=== PATIENT | female | born 1995 | race Caucasian/White ===

== ENCOUNTER 2018-01-24 13:31 | Emergency (ER) | payer BC, SELFPAY ==
[2018-01-24 13:33] VITALS: BP 152/103; PULSE 91; RESP 17; TEMP 36.4; O2SAT 100; BMI 19.7
--- NOTE | 2018-01-24 14:04 | EKG12_ITS ---
Test Reason : GENERAL ILLNESS Blood Pressure : / mmHG Vent. Rate : 073 BPM Atrial Rate : 073 BPM P-R Int : 134 ms QRS Dur : 084 ms QT Int : 394 ms P-R-T Axes : 060 084 040 degrees QTc Int : 434 ms Normal sinus rhythm Normal ECG Confirmed by TERI BUCHANAN MD ([id number]), photography editor LEONOR CHOU ([id number]) on 01/26/2018 3:06:05 PM Referred By: LAURA Confirmed By:TERI BUCHANAN MD
[2018-01-24] MEDS: 0.9% Normal Saline 1,000 ML 1000 ML IV (14:29)
--- NOTE | 2018-01-24 14:30 | RAD_ITS ---
STUDY: X-RAY CHEST REASON FOR EXAM: Female, 22 years old. Cough general illness TECHNIQUE: PA and lateral views of the chest. COMPARISON: None. FINDINGS: The lungs are clear and expanded. There is no demonstrated pleural abnormality. Normal size heart. Normal mediastinum and andrew. Normal visualized pulmonary arteries. Normal visualized aortic arch and descending thoracic aorta. Normal visualized thoracic spine. Normal visualized ribs, clavicles, and shoulders. There is no demonstrated abnormality of the visualized soft tissue structures of the upper abdomen. RAD/Chest PA and Lateral IMPRESSION: Normal x-ray examination of the chest. Electronically Signed: Porsche Frazier MD at 14:49 EST Tel , Service support ,
[2018-01-24 14:42] LABS: Mucous, Urine 0 SEEN /hpf (<or=2+); Red Blood Cells-Urine 0 SEEN /hpf (0-5)
--- NOTE | 2018-01-24 14:43 | ED.VISSUMM ---
- ER Visit Summary Date of Service: 01/24/18 Chief Complaint: [] Couple complaints cough fatigue left shoulder pain green stool for over a week History of Present Illness: The patient is a 22 F [] has those complaints for over a week to indicate began with a cough some vague left shoulder pain and she did have generalized fatigue then she began having green stool but no diarrhea she is able to eat and drink no fever the cough is dry nonproductive, she has had no exposure to ill food or ill individuals, she has no history of [place] PE DVT denies being no UTI symptoms her GI symptoms are resolved she never had vomiting or diarrhea and now her stool is back to being brown, her chief complaint is really generalized fatigue she denies Physical Examination: [] Distress she is a healthy-appearing female her vital signs are normal her pulse ox is normal she is afebrile clinically she looks well HEENT exam is unremarkable neck is supple lungs are clear oral cavity conjunctiva normal the lungs are clear heart tones are normal abdomen soft nontender the backs unremarkable upper lower extremities unremarkable her motor and sensory exam are unremarkable she is able to walk around the emergency department to the bathroom without difficulty Test Results: [] Emergency Department Course and Treatment: [] Her complaints a comprehensive evaluations pursued Since labs EKG chest x-ray unremarkable her d-dimer did return positive at 0.65 she is on control pills she has no risk for PE otherwise, she has no immobility leg swelling history of DVT or PE CTA is done of chest which is negative for PE there is some suggestion of mild esophagitis see that report In all the above the patient her mother at this time she will be started on Prilosec bland diet and follow with her family doctor for further management I explained her the exact etiology of all of her symptoms are unclear and she needs more definitive outpatient management she is feeling better she understands and she will follow-up Treatment Plan: [] Disposition: [] Stable home Impression: [] Nonspecific complaints of fatigue cough left shoulder pain, CT suggestive of esophagitis see that report This note was generated with [employer] dictation software. It may contain incorrect words, spelling, and punctuation that were not noted in review of the chart prior to signing ED Disposition - Plan for ED Patient: Chief Complaint: General Illness Referrals: Lois Perez MD [Primary Care Provider] -
[2018-01-24 14:50] LABS: Absolute Lymphocyte Count 3.45 X10^3/ul (0.83-4.51); Absolute Neutrophil Count 6.6 X10^3/uL (2.0-7.7); Basophil# 0.03 X10^3/uL; Basophil% 0.3 % (0-1); Eosinophil# 0.15 X10^3/uL; Eosinophils% 1.3 % (0-5); Hematocrit 44.1 % (37-47); Hemoglobin 14.5 g/dl (12.0-15.0); Lymphocyte # 3.45 X10^3/ul (4.0); Mean Corp Hgb Conc 32.9 g/gl (32-36); Mean Corpuscular Hgb 29.8 pg (27.0-32.0); Mean Corpuscular Volume 90.6 fL (81-99); Mean Platelet Vol. 9.9 fl (6.2-12.0); Monocyte# 0.89 X10^3/uL; Neutrophil # 6.59 X10^3/uL (2.7-7.7); Neutrophil % 59.2 % (47-70); POSITIVE COUNT NO; POSITIVE DIFFERENTIAL NO; POSITIVE MORPHOLOGY NO; Platelet Count 312 K/mm3 (150-450); RBC Distribution Width CV 12.5 % (11.6-14.6); RBC Distribution Width SD 40.9 fl (35.1-43.9); Red Blood Count 4.87 M/mm3 (4.2-5.4); White Blood Count 11.1 K/mm3 (4.4-11.0)
[2018-01-24 14:54] LABS: Color, Urine Yellow (Yellow); Glucose, Dipstick Normal (Normal); Ketone-Dipstick Negative (Negative); Leukocyte Esterase-Dipstick 25 /ul (Negative); Nitrite-Dipstick Negative (Negative); Occult Blood-Urine 10 /ul (Negative); Protein-Dipstick Negative (Negative); Specific Gravity, Urine 1.015 (1.002-1.030); Urine Bilirubin Dipstick Negative (Negative); Urine Clarity Clear (Clear); Urine Urobilinogen 1 mg/dl (Normal); Urine pH 6.5 (5.0 - 8.0)
[2018-01-24 15:09] LABS: AST(SGOT) 12 U/L (15-37); Alanine Aminotransfer ALT/SGPT 16 U/L (13-56); Alkaline Phosphatase 48 U/L (45-117); Anion Gap 7 (5-15); BUN 12 mg/dL (7-18); Bilirubin, Direct 0.15 mg/dL (0.00-0.30); Calcium,Total 8.6 mg/dL (8.5-10.1); Chloride 106 mmol/L (98-107); Creatinine, Serum 0.75 mg/dL (0.55-1.02); EST Glomerular Filtration Rate 104 mL/min (>60); Est Glom Filt Rate - Afr Amer 126 mL/min (>60); Estimated Creatinine Clearance 97.71 ml/min; Globulin 4.5 g/dL (2.2-4.2); Glucose 79 mg/dL (74-106); Lipase 154 U/L (73-393); Potassium 3.4 mmol/L (3.5-5.1); Protein, Total 8.5 g/dL (6.4-8.2); Sodium Level 138 mmol/L (136-145)
[2018-01-24 15:10] LABS: Bacteria 2+ /hpf (None Seen); Squamous Epithelial Cells - UA 5-10 SEEN /hpf (5-10); White Blood Cells 0-5 SEEN /hpf (0-5)
[2018-01-24 15:22] LABS: D-Dimer Quantitative (DVT/PE) 0.65 FEU/ug/m (0.27-0.49)
--- NOTE | 2018-01-24 15:26 | ED.RN ---
notified MD of d-dimer 0.65
--- NOTE | 2018-01-24 15:27 | CT_ITS ---
STUDY: CTA CHEST REASON FOR EXAM: Female, 22 years old. Chest pain for one week, shaky. RADIATION DOSAGE (If Supplied By Facility): CTDIvol = ( 7.66 ) mGy, DLP = ( 166.31 ) mGycm TECHNIQUE: The examination was performed with the intravenous administration of 75CC ml of Isovue 370 contrast material. Post-processing of the angiographic images was performed, with multiplanar reformation and 3D reconstruction. Individualized dose optimization techniques were used for this CT. COMPARISON: Chest x-ray January 24 2018 FINDINGS: Normal enhancement of the main pulmonary artery and right and left pulmonary arteries. Normal enhancement of the bilateral peripheral pulmonary arteries. There is no demonstrated pulmonary embolism. Normal thoracic aorta and visualized great vessels. There is no demonstrated aortic dissection. Normal heart and pericardium. Normal mediastinum. Normal hilar regions. Normal visualized trachea and bronchi. The lungs are well expanded. Normal pulmonary parenchyma. Normal pleura. Normal chest wall structures. Normal osseous structures. There is a suggestion of mild thickening of the distal esophagus. CT/CTA Chest W/WO Contrast IMPRESSION: Normal CTA chest examination, without a demonstrated pulmonary embolism or arterial dissection. Could consider mild esophagitis. Electronically Signed: Porsche Frazier MD at 16:16 EST Tel , Service support ,
[2018-01-24 15:39] LABS: Pregnancy, Serum, hCG Quali. NEGATIVE Negative (0-9 Nonpreg)
[2018-01-24] MEDS: 0.9% Normal Saline 1,000 ML 999 ML IV (16:11)
[2018-01-24 16:12] VITALS: BP 135/81; PULSE 87; RESP 16; O2SAT 99
--- NOTE | 2018-01-24 16:20 | ED.DEP ---
ED Disposition - Plan for ED Patient: Chief Complaint: General Illness Instructions: ED Weakness UKO, Esophagitis Prescriptions: Omeprazole [Prilosec] 20 mg PO DAILY #30 cap Referrals: Lois Perez MD [Primary Care Provider] -
[2018-01-24 16:34] VITALS: BP 125/77; PULSE 67; RESP 15; O2SAT 98
== END 2018-01-24 16:36 | disposition home or self-care (01) ==
PROVIDERS: Emergency Provider Emergency Medicine; Family Provider Pediatrics; PCP Pediatrics
DX: R05 Cough (principal); R53.83 Other fatigue; M25.512 Pain in left shoulder
CPT/HCPCS: 71046; 71275; 80048; 80076; 81001; 83690; 84484; 84703; 85025; 85379; 93005; 96360; 96361; 99283; J7030; Q9967

== ENCOUNTER 2020-11-21 12:18 | Emergency (ER) | payer BC, SELFPAY ==
[2020-11-21 12:19] VITALS: BP 119/77; PULSE 101; RESP 18; TEMP 36.3; O2SAT 100; BMI 20.5
--- NOTE | 2020-11-21 12:33 | ED.DCSUM_ITS ---
History of Present Illness Chief Complaint: Abd Pain Informant: Patient Narrative: 25-year-old female presenting with abdominal pain. She states it started about 3 AM above her umbilicus. She states that currently it is now hurting in the right lower quadrant. Patient has not had a fever or chills. She feels nauseous without vomiting. Patient states he has no surgical history. She denies any medical problems. No vaginal complaints or urinary complaints. She not had diarrhea or constipation. Past Medical History - Allergies and Home Meds Allergies/Adverse Reactions: Allergies No Known Allergies Allergy (Verified 01/24/18 13:32) Primary Care Physician: Lois Perez MD [Primary Care Provider] - Prior records reviewed: Yes Past Medical History: None Surgical History: no surgical history Smoking Status: Never smoker Alcohol: None Drugs: None Review of Systems General: Denies: Chills, Fever, Malaise Eyes: Denies: Visual changes - bilaterally, Diplopia ENT: Denies: Rhinorrhea, Sore throat Cardiovascular: Denies: Chest pain, Palpitations Respiratory: Denies: Dyspnea, Cough, Dyspnea on exertion Gastrointestinal: Reports: Abdominal pain, Nausea. Denies: Vomiting, Diarrhea, Constipation Genitourinary: Denies: Dysuria, Hematuria, Frequency Musculoskeletal: Denies: Back pain, Extremity Pain Skin: Denies: Rash, Wounds Neurological: Denies: Headache, Weakness, Numbness Psych: Denies: Depression, Anxiety Physical Exam Vital Signs/Narrative: Vital Signs Temp Pulse Resp BP Pulse Ox 11/21/20 12:19 97.3 F L 101 H 18 119/77 100 Inital Vital Signs reviewed: Yes General: Well nourished, Well developed, No Acute Distress Head: Normocephalic, Atraumatic Eyes: Perrl, EOMI ENT: Moist mucous membranes, No rhinorrhea Cardiovascular: Regular rate, Regular rhythm Respiratory: No distress, CTA bilaterally Abdomen: Soft, Nondistended, Tender - Tenderness palpation right lower quadrant. Extremities: Nontender, No edema Skin: Normal color, No rash Neurological: Alert, Oriented x3 Psychological: Normal affect, Normal Mood Diagnostic/Tx/Re-eval Clinical Impression(s) from Imaging Studies Abdomen/Pelvis CT 11/21/20 12:38 IMPRESSION: Prominence of the portal triads within the liver. Periportal edematous changes to be ruled out. 1.87 x 2.6 cm cyst in the left ovary. Electronically Signed: Don Blevins, at 15:09 EST , Service support , Laboratory Data 11/21/20 11/21/20 11/21/20 12:55 12:55 13:53 WBC 5.4 RBC 4.86 Hgb 14.2 Hct 45.1 MCV 92.8 MCH 29.2 MCHC 31.5 L RDW Std Deviation 41.4 RDW Coeff of Lise 12.0 Plt Count 319 MPV 9.0 Immature Gran % (Auto) 0.200 Neut % (Auto) 57.5 Lymph % (Auto) 30.4 [place] % (Auto) 8.8 Eos % (Auto) 2.2 Baso % (Auto) 0.9 Absolute Neuts (auto) 3.1 Absolute Lymphs (auto) 1.65 Nucleated RBC % 0 Sodium 141 Potassium 4.1 Chloride 108 H Carbon Dioxide 27.0 Anion Gap 6 BUN 7 Creatinine 0.82 Estim Creat Clear Calc 90.90 Est GFR (MDRD) Af Amer 109 Est GFR (MDRD) Non-Af 90 BUN/Creatinine Ratio 8.5 L Glucose 85 Calcium 8.9 Urine Color Straw Urine Clarity Clear Urine pH 7.0 Ur Specific [place] 1.005 Urine Protein Negative Urine Glucose (UA) Normal Urine Ketones Negative Urine Occult Blood Negative Urine Nitrite Negative Urine Bilirubin Negative Urine Urobilinogen Normal Ur Leukocyte Esterase Negative Urine RBC 0 SEEN Urine WBC 0 SEEN Ur Squamous Epith Cells 0-5 SEEN Urine Bacteria 0 SEEN Urine Mucus 0 SEEN Urine Test Negative - Medical Decision Making 5-year-old female with no significant past medical history presents with right lower quadrant pain. Patient was given morphine and Zofran and had CT of the abdomen pelvis with p.o. and IV contrast performed which showed a ovarian cyst however there was nothing on the right. The appendix is well visualized and shows no signs of appendicitis. Lab work is all within normal limits. It is unclear what her pain is on the right side. She was offered transvaginal ultrasound, but opted to just stay home for a couple of days until she feels better. She was counseled that if she has worsening or continued pain in the right lower quadrant that she would need to be reevaluated in the next 24 hours for repeat exam and possibly repeat CT of the abdomen pelvis. She acknowledged understanding. Patient stable for discharge. Impression: 1. Left ovarian cyst 2. Right lower quadrant abdominal pain ED Disposition - Plan for ED Patient: Disposition: Home or Assisted Living Instructions: ED Ovarian Cyst Prescriptions: Oxycodone [Oxyir] 5 mg PO Q6H PRN PRN 3 Days #12 tab PRN Reason: pain Prescription Printed Ondansetron [Zofran Odt] 4 mg PO Q8H PRN PRN #20 tab PRN Reason: Nausea Prescription Printed Referrals: Lois Perez MD [Primary Care Provider] -
--- NOTE | 2020-11-21 12:38 | CT_ITS ---
STUDY: CT ABDOMEN AND PELVIS WITH CONTRAST REASON FOR EXAM: Female, 25 years old. RLQ PAIN TODAY, NAUSEA RADIATION DOSAGE (If Supplied By Facility): CTDIvol = ( 9.23 ) mGy, DLP = ( 427.30 ) mGycm TECHNIQUE: Transaxial images were obtained from the dome of the diaphragm to the symphysis pubis with oral contrast. Oral and amp;amp; IV Gastrografin and amp;amp; 100mL Isovue-300 was administered. Sagittal and coronal images were reconstructed. Individualized dose optimization techniques were used for this CT. COMPARISON: None. FINDINGS: The visualized lung bases are unremarkable. The visualized portions of the heart are within normal limits. Prominence of the portal triads within the liver. This is suggestive of periportal edema. Normal gallbladder and extrahepatic biliary system. Normal spleen. Normal pancreas. Normal bilateral adrenal glands. Normal right kidney. Normal left kidney. Normal visualized stomach. Normal small intestine. Normal colon. The appendix is visualized and appears normal. Normal abdominal aorta. There is venous distention of the inferior vena cava (IVC). Normal retroperitoneum. Normal urinary bladder. I suspect a 1.8 cm x 2.6 cm cyst in the left ovary. There is a small umbilical hernia containing fat. Normal osseous structures. CT/Abdomen/Pelvis WITH Contrast IMPRESSION: Prominence of the portal triads within the liver. Periportal edematous changes to be ruled out. 1.87 x 2.6 cm cyst in the left ovary. Electronically Signed: Don Blevins, at 15:09 EST , Service support ,
[2020-11-21 13:04] LABS: Absolute Lymphocyte Count 1.65 X10^3/uL (0.83-4.51); Absolute Neutrophil Count 3.1 X10^3/uL (2.0-7.7); Basophil# 0.05 X10^3/uL; Basophil% 0.9 % (0-1); Eosinophil# 0.12 X10^3/uL; Eosinophils% 2.2 % (0-5); Hematocrit 45.1 % (37-47); Hemoglobin 14.2 g/dL (12.0-15.0); Lymphocyte # 1.65 X10^3/ul (4.0); Lymphocyte % 30.4 % (19-41); Mean Corp Hgb Conc 31.5 g/dL (32-36); Mean Corpuscular Hgb 29.2 pg (27.0-32.0); Mean Corpuscular Volume 92.8 fL (81-99); Monocyte# 0.48 X10^3/uL; Monocyte% 8.8 % (0-10); NRBC Flagged by Analyzer 0 % (0-5); Neutrophil # 3.12 X10^3/uL (2.7-7.7); Neutrophil % 57.5 % (47-70); Platelet Count 319 K/mm3 (150-450); RBC Distribution Width SD 41.4 fl (35.1-43.9); Red Blood Count 4.86 M/mm3 (4.2-5.4); White Blood Count 5.4 K/mm3 (4.4-11.0)
[2020-11-21 13:17] LABS: Anion Gap 6 (5-15); BUN 7 mg/dL (7-18); BUN/Creat Ratio 8.5 RATIO (10-20); Calcium,Total 8.9 mg/dL (8.5-10.1); Chloride 108 mmol/L (98-107); Creatinine, Serum 0.82 mg/dL (0.55-1.02); EST Glomerular Filtration Rate 90 mL/min (>60); Est Glom Filt Rate - Afr Amer 109 mL/min (>60); Glucose 85 mg/dL (74-106); Potassium 4.1 mmol/L (3.5-5.1); Sodium Level 141 mmol/L (136-145)
[2020-11-21] MEDS: Ondansetron 4 MG/2 ML Vial IV (13:34)
[2020-11-21] MEDS: 0.9% Normal Saline 1,000 ML 1000 ML IV (13:34)
[2020-11-21] MEDS: Morphine 4 MG/ML Syringe IV (13:34)
[2020-11-21 14:06] LABS: Bacteria 0 SEEN /hpf (None Seen); Mucous, Urine 0 SEEN /hpf (<or=2+); Red Blood Cells-Urine 0 SEEN /hpf (0-5); White Blood Cells 0 SEEN /hpf (0-5)
[2020-11-21 14:23] LABS: Color, Urine Straw (Yellow); Glucose, Dipstick Normal (Normal); Ketone-Dipstick Negative (Negative); Leukocyte Esterase-Dipstick Negative /ul (Negative); Nitrite-Dipstick Negative (Negative); Occult Blood-Urine Negative /ul (Negative); Protein-Dipstick Negative (Negative); Specific Gravity, Urine 1.005 (1.002-1.030); Urine Bilirubin Dipstick Negative (Negative); Urine Clarity Clear (Clear); Urine Urobilinogen Normal (Normal)
[2020-11-21 14:31] LABS: Internal QC Validated? YES +Cl - CLEAR BKGD; Pregnancy, Urine Negative Negative; Squamous Epithelial Cells - UA 0-5 SEEN /hpf (5-10)
[2020-11-21 16:25] VITALS: BP 111/62; RESP 15
== END 2020-11-21 16:33 | disposition home or self-care (01) ==
PROVIDERS: Emergency Provider Student in an Organized Health Care Education/Training Program; PCP Pediatrics
DX: N83.202 Unspecified ovarian cyst, left side (principal); R10.31 Right lower quadrant pain
CPT/HCPCS: 74177; 80048; 81001; 81025; 85025; 87426; 96361; 96374; 96375; 99283; J7030; Q9967; A4216; J2405